=== PATIENT | female | born 2005 | race Two or more races ===

== ENCOUNTER 2025-06-06 09:23 | Outpatient (CLI) | payer OTHER ==
[2025-06-06 11:50] LABS: BASO % 0.4 % (0.1-1.2); EOS # 0.07 (0.04-0.54); EOS % 1.3 % (0.7-7.0); LYMPH # 1.69 (1.18-3.74); LYMPH % 30.2 % (19.3-53.1); MEAN PLATELET VOLUME 9.70 fl (9.4-12.4); MONO # 0.45 (0.24-0.82); MONO % 8.0 % (4.7-12.5); NEUT # 3.35 (1.56-6.13); NEUT % 59.7 % (34.0-71.1); RED CELL DISTRIBUTION WIDTH 14.4 % (11.6-14.4)
[2025-06-06 11:58] LABS: URINE APPEARANCE Clear; URINE BILIRRUBIN Negative (NEGATIVE); URINE BLOOD Negative; URINE COLOR Yellow; URINE GLUCOSE Negative (NEGATIVE); URINE KETONE Negative (NEGATIVE); URINE LEUKOCYTE Negative; URINE NITRATE Negative; URINE PROTEIN Negative (NEGATIVE); URINE UROBILINOGEN 0.2 E.U./dl
[2025-06-06 12:02] LABS: URINE BACTERIA 1448.2 uL (0.0-1933); URINE EPITHELIAL CELLS 30.2 uL (0.0-38.8); URINE RBC 11.2 uL (0.0-20.8); URINE WBC 18.7 uL (0.0-23.2)
[2025-06-06 12:13] LABS: URINE CAST 0.00 uL (0.0-1.40)
[2025-06-06 13:08] LABS: ALT/SGPT 22.0 U/L (12-78); AST/SGOT 11.0 U/L (15-37); BILIRUBIN TOTAL 0.37 mg/dL (0.3-1.2); BUN CREA RATIO 27.0 (7.0-25.0); CHOL HDL RATIO 2.9 (0-5.0); CREATININE SERUM 0.71 mg/dL (0.55-1.02); GFR 106.05; GLOBULINA 3.6 G/DL (2.4-3.5); GLUCOSE FASTING 74.0 mg/dL (65-100); HDL 55.0 mg/dl (40-60); LDL 91.0 mg/dl (0-130); OSMOLALITY SERUM 280.0 MOSM/KG (275-295); T4 FREE 1.02 NG/ML (0.76-1.46); TSH 1.59 uIU/mL (0.358-3.74); VLDL 13.0 (0-39)
[2025-06-07 11:42] LABS: VITAMIN D3 25 HYDROXY 16.93 ng/ml (30-120)
[2025-06-10 09:08] LABS: PROGESTERONA 0.1 ng/mL (.)
[2025-06-10 13:08] LABS: LEUTEINIZING HORMONE 11.8 mIU/mL (.)
== END 2025-06-06 23:00 | disposition home or self-care (01) ==
LOC: LAB 09:23
DX: I11.9 Hypertensive heart disease without heart failure (principal); E55.9 Vitamin D deficiency, unspecified; N39.0 Urinary tract infection, site not specified; E07.89 Other specified disorders of thyroid; Z12.11 Encounter for screening for malignant neoplasm of colon; D51.9 Vitamin B12 deficiency anemia, unspecified; N95.9 Unspecified menopausal and perimenopausal disorder; E78.49 Other hyperlipidemia; K21.9 Gastro-esophageal reflux disease without esophagitis; E11.65 Type 2 diabetes mellitus with hyperglycemia

== ENCOUNTER 2025-07-01 10:30 | Outpatient (CLI) | payer OTHER | END 2025-07-01 10:34 | disposition home or self-care (01) | LOC: SONOGRAMA 10:30 | DX: R10.2 Pelvic and perineal pain (principal); N93.9 Abnormal uterine and vaginal bleeding, unspecified ==